=== PATIENT | female | born 1940 | race Caucasian/White ===

== ENCOUNTER 2018-08-25 10:13 | Emergency (ER) | payer OTHER, BC ==
[2018-08-25 10:32] VITALS: BP 182/94; PULSE 78; TEMP 98.2; BMI 26.5
--- NOTE | 2018-08-25 10:35 | PDOC ---
History of Present Illness - General Chief Complaint: Pain Stated Complaint: RIGHT LEG PAIN Time Seen by Provider: 08/25/18 10:16 History Source: Patient Exam Limitations: No Limitations - History of Present Illness Initial Comments: 08/25/18 10:29 78 y/o female with right hip pain and pain in back of thigh since 08/20/18. 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 Denies fall or trauma. No cheat pain or SOB. Took Tylenol for the pain. Pain comes and goes with certain movement. Has done some lifting recently. No fever or chills. No incontinence or weakness. Denies numbness. Patient denies back pain as well. No dysuria as well. 08/25/18 10:33 Severity: reports: mild Pain Location: reports: lower extremity, pelvis Method of Injury: Yes: unknown Modifying Factors: improves with: None Loss of Consciousness: no loss of consciousness Past History - Past Medical History Allergies/Adverse Reactions: Allergies Allergy/AdvReac Type Severity Reaction Status Date / Time aspirin Allergy Intermediate Verified 08/25/18 10:22 PCN Allergy Rash Uncoded 08/25/18 10:22 Home Medications: Ambulatory Orders Ca/D3/Mag#11/Zinc/Training And Development Manager/Parveen/Bor [Caltrate 600+D Plus Tablet] 500 mg PO BID Acetaminophen [Tylenol] 650 mg PO HS PRN 02/11/14 FA/Mv,Ca,Iron,Min/Lycopene/Lut [Centrum Tablet] 1 each PO DAILY 02/11/14 Cyclobenzaprine HCl 5 mg PO BID #6 tablet 08/25/18 Anemia: No Asthma: No Cancer: No Cardiac Disorders: No CVA: No COPD: No CHF: No Dementia: No Diabetes: No GI Disorders: No Disorders: No HTN: Yes Hypercholesterolemia: Yes Liver Disease: No Seizures: No Thyroid Disease: No - Suicide/Smoking/Psychosocial Hx Smoking Status: No Smoking History: Never smoked Number of Cigarettes Smoked Daily: 0 Hx Alcohol Use: No Drug/Substance Use Hx: No Substance Use Type: None Hx Substance Use Treatment: No Review of Systems - Review of Systems Able to Perform ROS?: Yes Is the patient limited [place] proficient: No Constitutional: No: Chills, Fever Respiratory: No: Cough, Shortness of Breath Cardiac (ROS): No: Chest Pain : No: Dysuria Musculoskeletal: Yes: Joint Pain. No: Back Pain, Joint Swelling Integumentary: No: Bruising Neurological: No: Numbness, Weakness All Other Systems: Reviewed and Negative *Physical Exam - Physical Exam General Appearance: Yes: Nourished, Appropriately Dressed. No: Apparent Distress HEENT: positive: EOMI, SHANICE, Normal ENT Inspection, Normal Voice, Pharynx Normal Neck: positive: Trachea midline, Normal Thyroid, Supple. negative: Tender, Rigid, Carotid bruit Respiratory/Chest: positive: Lungs Clear, Normal Breath Sounds. negative: Chest Tender Cardiovascular: positive: Regular Rhythm, Regular Rate, S1, S2. negative: Edema , JVD, Murmur Vascular Pulses: Femoral (R): 4+, Femoral (L): 4+, Carotid (R): 4+, Carotid (L) : 4+, Dorsalis-Pedis (R): 4+, Doralis-Pedis (L): 4+ Gastrointestinal/Abdominal: positive: Normal Bowel Sounds, Flat, Soft. negative : Tender, Organomegaly, Pulsatile Mass, Hernia Lymphatic: negative: Adenopathy, Tenderness, Other Musculoskeletal: positive: Normal Inspection. negative: CVA Tenderness Extremity: positive: Normal Capillary Refill, Normal Inspection, Normal Range of Motion, Pelvis Stable, Other (no inguinal hernia, pain with movement of right leg, no shortening or external rotation of right leg noted, full ROM, no calf tenderness or swelling, pulses 2+/5 b/l in LE, no focal deficits noted, varicosities noted). negative: Tender, Calf Tenderness Integumentary: positive: Normal Color, Dry, Warm. negative: Erythema, Rash, Swelling, Ecchymosis Neurologic: positive: marketing automation specialist II-XII NML intact, Fully Oriented, Alert, Normal Mood/ Affect, Normal Response, Motor Strength 5/5 ED Treatment Course - ADDITIONAL ORDERS Additional order review: 08/25/18 12:15 Right hip x-ray: no fracture seen, unchanged from prior - RADIOLOGY Radiology Studies Ordered: Category Date Time Status HIP & PELVIS-RIGHT [RAD] Stat Radiology 08/25/18 10:29 Ordered Progress Note - Progress Note Progress Note: Right hip/groin pain, may be muscle strain, will x-ray hip. Patient and family in agreement with plan Pt given Tylenol, resting comfortably, able to ambulate Will call in Flexeril 5 mg Follow up with PMD/Orthopedics UA discussed with family, as per has hx of trace blood in urine, not new If worsen return to ER Family in agreement with plan *DC/Admit/Observation/Transfer Diagnosis at time of Disposition: Hip pain, right - Discharge Dispostion Disposition: HOME Condition at time of disposition: Stable Decision to Admit order: No - Prescriptions Prescriptions: Cyclobenzaprine HCl 5 mg PO BID #6 tablet - Referrals - Patient Instructions Printed Discharge Instructions: DI for Hip Pain Additional Instructions: Tylenol, rest Flexeril 5 mg 2x/day as needed If worsen return to ER - Post Discharge Activity
[2018-08-25] MEDS ORDERED: ACETAMINOPHEN 325 MG TABLET (FP) PO ONE (11:05)
[2018-08-25 11:10] LABS: PH,URINE 5.5 (4.5-8); URINE APPEARANCE Clear; URINE BILIRUBIN Negative (NEGATIVE); URINE COLOR Yellow; URINE GLUCOSE (UA) Negative (NEGATIVE); URINE KETONE Negative (NEGATIVE); URINE LEUK ESTERASE TRACE (NEGATIVE); URINE NITRITE Negative (NEGATIVE); URINE PROTEIN Negative (NEGATIVE); URINE UROBILINOGEN 0.2 (0.2-1.0)
[2018-08-25 12:06] LABS: EPI CELLS FEW /HPF; URINE BACTERIA NONE SEEN /hpf (NEGATIVE); URINE WBC 0-3 (0-5)
== END 2018-08-25 12:30 | disposition home or self-care (01) ==
LOC: FER 10:13
DX: M25.551 Pain in right hip (principal); I10 Essential (primary) hypertension; E78.00 Pure hypercholesterolemia, unspecified
CPT/HCPCS: 73523-TC-FY; 81003; 81015; 99282-25

== ENCOUNTER 2023-09-30 00:42 | Inpatient (IN) | payer OTHER, BC ==
[2023-09-30] MEDS ORDERED: ONDANSETRON 4 MG/2 ML VIAL ONE (02:06)
[2023-09-30] MEDS: LACTATED RINGERS SOLUTION 1000 ML INFUS.BAG IV ONE (02:14)
[2023-09-30] MEDS: ONDANSETRON 4 MG/2 ML VIAL IVPUSH ONE (02:14)
[2023-09-30 02:36] LABS: EPI CELLS 2 /uL (0-25.1); HYALINE CASTS 0 /uL (0-3.1); PH,URINE 5.5 (5.0-8.0); URINE APPEARANCE CLEAR; URINE BACTERIA 5445 /uL (0-1359); URINE BILIRUBIN NEGATIVE (NEGATIVE); URINE COLOR YELLOW; URINE GLUCOSE (UA) NEGATIVE (NEGATIVE); URINE KETONE NEGATIVE (NEGATIVE); URINE LEUK ESTERASE 2+ (NEGATIVE); URINE NITRITE POSITIVE (NEGATIVE); URINE PROTEIN TRACE (NEGATIVE); URINE RBC 219 /uL (0-23.9); URINE UROBILINOGEN 0.2 mg/dL (0.2-1.0); URINE WBC 384 /uL (0-25.8)
[2023-09-30 02:52] LABS: POTASSIUM 3.6 mmol/L (3.5-5.1)
[2023-09-30 02:53] LABS: CALCIUM 9.3 mg/dL (8.5-10.1)
[2023-09-30 02:54] LABS: ALBUMIN 3.9 g/dl (3.4-5.0); BLOOD UREA NITROGEN 25.3 mg/dL (7-18); MAGNESIUM 2.2 mg/dL (1.8-2.4)
[2023-09-30 02:58] LABS: BILIRUBIN,TOTAL 0.6 mg/dL (0.2-1); CREATININE 0.9 mg/dL (0.55-1.3); TOT PROT 8.4 g/dl (6.4-8.2)
[2023-09-30 03:00] LABS: HEMATOCRIT 41.1 % (32.4-45.2); HEMOGLOBIN 14.4 GM/dL (10.7-15.3); MCH 31.4 pg (25.7-33.7); MEAN CELL VOLUME 89.5 fl (80-96); MEAN PLT VOLUME 7.4 fl (7.5-11.1); PLATELET COUNT 225 10^3/uL (134-434); RBC 4.59 M/mm3 (3.60-5.2); RDW 13.1 % (11.6-15.6); WHITE BLOOD COUNT 16.4 K/mm3 (4.0-10.0)
[2023-09-30] MEDS ORDERED: CEFTRIAXONE 1 GM/50 ML BAG ONE (03:03)
[2023-09-30] MEDS: morphine CARPU-JECT 2 MG/1 ML DISP.SYRIN IVPUSH ONE (03:09)
[2023-09-30 03:20] LABS: LACTIC ACID 2.3 mmol/L (0.4-2.0)
[2023-09-30] MEDS: DICYCLOMINE HCL 20 MG/2 ML AMPUL IM ONE (03:21)
[2023-09-30] MEDS ORDERED: KETOROLAC TROMETHAMINE 15 MG/ML VIAL IVPUSH PRN (08:36)
[2023-09-30] MEDS: LACTATED RINGERS SOLUTION 1,000 ML/1,000 ML INFUS.BAG IV SCH ×2 (08:50→21:19)
[2023-09-30 13:00] VITALS: BMI 19.5
[2023-09-30] MEDS ORDERED: CEFTRIAXONE 1 GM in DEXTROSE 5%-WATER - 50 ML IVPB ONE (13:15)
[2023-09-30] MEDS ORDERED: CEFTRIAXONE 1,000 MG in DEXTROSE 5%-WATER - 50 ML IVPB ONE (15:00)
[2023-09-30] MEDS: ACETAMINOPHEN 500 MG TABLET (FP) PO PRN (21:18)
[2023-10-01 10:24] LABS: BASO % 1.2 % (0-2.0); EOS % 0.5 % (0-4.5); HEMATOCRIT 39.7 % (32.4-45.2); HEMOGLOBIN 13.3 GM/dL (10.7-15.3); LYMPH % 16.7 % (8-40); MCH 30.6 pg (25.7-33.7); MCHC 33.6 g/dl (32.0-36.0); MEAN CELL VOLUME 91.1 fl (80-96); MEAN PLT VOLUME 7.9 fl (7.5-11.1); MONO % 7.6 % (3.8-10.2); PLATELET COUNT 198 10^3/uL (134-434); RBC 4.35 M/mm3 (3.60-5.2); RDW 12.9 % (11.6-15.6); WHITE BLOOD COUNT 10.9 K/mm3 (4.0-10.0)
[2023-10-01 10:56] LABS: POTASSIUM 4.1 mmol/L (3.5-5.1)
[2023-10-01 10:57] LABS: CALCIUM 8.5 mg/dL (8.5-10.1)
[2023-10-01 10:58] LABS: BLOOD UREA NITROGEN 11.6 mg/dL (7-18)
[2023-10-01 11:01] LABS: CREATININE 0.6 mg/dL (0.55-1.3)
[2023-10-01] MEDS ORDERED: PROMETHAZINE HCL 25 MG/1 ML VIAL IVPB PRN ×3 (11:29→16:23)
[2023-10-01] MEDS ORDERED: ONDANSETRON 4 MG/2 ML VIAL IVPUSH PRN ×3 (11:29→16:23)
[2023-10-01] MEDS ORDERED: PROPOFOL 20 ML ONE (11:34)
[2023-10-01] MEDS ORDERED: LIDOCAINE HCL/PF 2% SDV 5ML VIAL ONE (11:51)
[2023-10-01] MEDS ORDERED: ONDANSETRON 4 MG/2 ML VIAL ONE (11:56)
[2023-10-01] MEDS ORDERED: DEXAMETHASONE SOD PHOSPHATE 4 MG/1 ML VIAL ONE (11:56)
[2023-10-01] MEDS ORDERED: KETOROLAC TROMETHAMINE 30 MG/1 ML VIAL ONE (12:44)
[2023-10-01] MEDS ORDERED: ACETAMINOPHEN 500 MG TABLET (FP) PO PRN (14:30)
[2023-10-01] MEDS ORDERED: KETOROLAC TROMETHAMINE 15 MG/ML VIAL IVPUSH PRN (14:30)
[2023-10-01] MEDS: LACTATED RINGERS SOLUTION 1,000 ML IV SCH ×2 (15:00→19:09)
[2023-10-01] MEDS: amLODIPine BESYLATE 5 MG TABLET (FP) PO SCH (18:02)
[2023-10-01] MEDS: LATANOPROST 0.005% OPHTH SOLN 2.5ML BOTTLE OU SCH (22:02)
[2023-10-02 06:32] VITALS: RESP 20
[2023-10-02 09:45] LABS: BASO % 0.1 % (0-2.0); HEMATOCRIT 39.1 % (32.4-45.2); HEMOGLOBIN 13.9 GM/dL (10.7-15.3); LYMPH % 5.2 % (8-40); MCH 31.7 pg (25.7-33.7); MCHC 35.6 g/dl (32.0-36.0); MEAN PLT VOLUME 7.6 fl (7.5-11.1); MONO % 4.2 % (3.8-10.2); NEUT % 90.5 % (42.8-82.8); PLATELET COUNT 211 10^3/uL (134-434); RDW 13.1 % (11.6-15.6); WHITE BLOOD COUNT 14.5 K/mm3 (4.0-10.0)
[2023-10-02 10:04] LABS: POTASSIUM 3.8 mmol/L (3.5-5.1)
[2023-10-02 10:11] LABS: BLOOD UREA NITROGEN 18.2 mg/dL (7-18); CALCIUM 9.1 mg/dL (8.5-10.1)
[2023-10-02 10:14] LABS: CREATININE 0.8 mg/dL (0.55-1.3)
[2023-10-02 10:16] LABS: BILIRUBIN,TOTAL 0.7 mg/dL (0.2-1); TOT PROT 6.6 g/dl (6.4-8.2)
[2023-10-02 10:23] LABS: ALBUMIN 2.8 g/dl (3.4-5.0)
[2023-10-02 10:39] VITALS: BP 125/75; PULSE 74; TEMP 98.1
[2023-10-02] MEDS: SULFAMETHOXAZOLE/TRIMETHOPRIM 800MG/160MG D.S. TABLET PO SCH (11:28)
== END 2023-10-02 13:50 | disposition home or self-care (01) | DRG 661 ==
LOC: JER 00:42 → JERBED 06:36 → J5S 10:27
PROVIDERS: ADMIT Internal Medicine; ATTEND Internal Medicine
PROC: 0T778DZ Dilation of Left Ureter with Intraluminal Device, Via Natural or Artificial Opening Endoscopic (ICD-10-PCS; principal; 2023-10-01 12:00)
PROC: 0TC77ZZ Extirpation of Matter from Left Ureter, Via Natural or Artificial Opening (ICD-10-PCS; 2023-10-01 12:00)
DX: N13.6 Pyonephrosis (principal); G80.9 Cerebral palsy, unspecified; K43.9 Ventral hernia without obstruction or gangrene; B96.20 Unspecified Escherichia coli [E. coli] as the cause of diseases classified elsewhere
CPT/HCPCS: 0241U-QW; 36415; 74177-TC; 76000-TC-FY; 80048; 80053; 81003; 82360; 83605; 83690; 83735; 84484; 85025; 87086; 87186; 88300-TC; 93005; 93010; 94760; 97116-GP; 97161-GP; 99285-25; C1758; C2617; Q9967

== ENCOUNTER 2024-05-26 06:54 | Day surgery (SDC) | payer OTHER, BC ==
[2024-05-21 11:01] VITALS: BMI 19.6
[2024-05-26 06:57] VITALS: TEMP 97.6
[2024-05-26 11:40] VITALS: RESP 20
[2024-05-26 11:42] VITALS: BP 132/70; PULSE 65
== END 2024-05-26 09:34 | disposition home or self-care (01) ==
LOC: JASU-SURG 06:54
PROVIDERS: ATTEND Urology
PROC: 0TF3XZZ Fragmentation in Right Kidney Pelvis, External Approach (ICD-10-PCS; principal; 2024-05-26 08:00)
DX: N20.0 Calculus of kidney (principal)